=== PATIENT | male | born 1955 | race Caucasian/White ===

== ENCOUNTER → 2019-12-01 | Outpatient (CLI) | payer OTHER, MEDICARE ==
[~2019-12-01] MED LIST: AMBEREN; ASPIRIN BUFFER325 MG PO; ASPIRIN EC325 M1 PO; ASPIRIN EC81 M1 PO; ASPIRIN325; ASPRIMOX 325 M325 MG PO; BACTROBAN CREAM30 G1 NASAL; BENICAR20 MG PO; BYSTOLIC2.5 MG PO; CARVEDILOL6.25 MG PO; COREG PO; EFFIENT10 MG PO; FERREX-150 PLU150 MG PO; HYDROCODON-ACE1 EAC8 PO; LIPITOR40 MG PO; LORAZEPAM 0.50.5 MG PO; LORTAB 5 MG/5001 TAB PO; MEXILETINE 150150 MG PO; PACERONE 200 M200 M1 PO; PLAVIX 75 MG TA75 MG PO; TRIPLE ANTIBIO1 EACH TP
== END ==
LOC: SJCVCIMAG 07:21
PROVIDERS: ATTEND Internal Medicine Cardiovascular Disease
DX: I25.10 Atherosclerotic heart disease of native coronary artery without angina pectoris (principal); I10 Essential (primary) hypertension; E78.00 Pure hypercholesterolemia, unspecified; Z95.1 Presence of aortocoronary bypass graft; Z79.899 Other long term (current) drug therapy; Z87.891 Personal history of nicotine dependence

== ENCOUNTER → 2019-12-08 | Outpatient (CLI) | payer OTHER, MEDICARE ==
[~2019-12-08] VITALS: Ht 182.9 cm; Wt 75.7 kg
[~2019-12-08] MED LIST changes: +CARVEDILOL25 MG PO; -CARVEDILOL6.25 MG PO; +COZAAR 25 MG TA25 M2 PO
[2019-12-08 07:15] VITALS: BP 130/75
[2019-12-08 07:40] LABS: HEMATOCRIT 42.9 % (42.0-52.0); HEMOGLOBIN 14.2 gm/dL (14.0-18.0); MCHC 33.2 g/dL (28.0-37.0); MCV 96.4 fL (80.0-100.0); RBC 4.45 mil/uL (4.50-6.00); RDW 13.1 % (10.5-14.5); WBC 4.1 thou/uL (4.0-11.0)
[2019-12-08 07:45] LABS: CALCIUM 8.8 mg/dL (8.5-10.1); POTASSIUM 4.4 mmol/L (3.5-5.1)
--- NOTE | 2019-12-08 15:04 | CATHLAB ---
[facility] [place] [address] INVASIVE PROCEDURE REPORT Name: KEVIN STARK Room #: REG GEENA PrattKamlaRocíoKamla#: [id number] Admission: 12/08/19 Attend Phys: Rosalio Cummings MD Discharge: Date of : 53 Report #: [id number] THIS REPORT FOR: cc: Bryn Vasquez MD, Troy A. MD Park, Jin S. MD ~ APPROVED REPORT Study performed: 12/08/2019 07:55:30 Patient Details Patient Status: Out-Patient Room #: The patient is a 64 year-old male Event Personnel Rosalio Cummings Customer Success Associate, Mami Ceballos RN RN, Bety Gomez RN RN, Molly Galarza RTR, VINH Scrub, Shahram Solano RTR Scrub, Mindi Wilks RTR Monitor Procedures Performed Art Access - R femoral artery* Left Heart Cath Coronaries, Bypass Grafts [id number] [id number] Initial Mod Sed Same Phys/QHP Gr5y [id number] 72702 Mod Sed Same Phys/QHP Ea 850835 Hemostasis with Manual pressure Indication Arrhythmia, Positive stress test Risk Factors Hypercholesterolemia, Coronary Artery DiseaseHypertension Previous Procedures/Diagnoses Previous CABGPrevious PCI Procedure Narrative The Right Groin^ was infiltrated with 1% Lidocaine subcutaneous anesthesia. A PINNACLE 4FR Sheath #[id number] sheath was inserted into the RFA^. Coronary angiography was performed using coronary diagnostic catheters. The right coronary system was accessed and visualized with a JR4 catheter. The left coronary system was accessed and visualized with a JL4 catheter. The left ventricle was accessed and visualized with a PIGTAIL catheter. Left ventriculogram was performed in 30 degree projection. Hemostasis was obtained with manual pressure following sheath removal without any complications. [facility] [address] [place] [address] INVASIVE PROCEDURE REPORT Name: KEVIN STARK Room #: REG [facility]#: [id number] Admission: 12/08/19 Attend Phys: Rosalio Cummings MD Discharge: Date of : 53 Report #: [id number] The patient tolerated the procedure well and there were no complications associated with the procedure. There was no hematoma. Intraoperative Conscious Sedation Sedation start time: 830 Case end Time: 935 Fentanyl 50 mcg Versed 1 mg Fluoro Time: 11.60 minutes Dose: DAP 73029.00 cGycm2 2581 mGy Contrast Type and Amount: Omnipaque 195 ml Coronary Angiography The patient's coronary anatomy is right dominant. Diagnostic Cath Left Main The left main artery is a large-caliber vessel, patent with no flow-limiting lesions. LAD The LAD is a severe stenosis in the proximal and mid segments. There is a patent MORTON graft with a end-to-side anastomosis to the mid LAD. Diagonal 1 There is a borderline restenotic lesion, approximately 60% at the ostium. There is an occluded free radial graft to D1(probably due to competitive filling from the zuni vessel). Circumflex The left circumflex artery is a moderate-sized caliber vessel with a borderline stenosis in the proximal segment, 60%. OM1 There is a patent stent in the proximal segment of OM1 with mild restenosis. Right Coronary The RCA is a dominant vessel with a total occlusion in the midsegment. R PDA There is a patent SVG with an end-to-side anastomosis to the PDA. There is both retrograde and anterograde filling after the anastomosis. Left Ventriculography The left ventricle is dilated in size with decreased contractility. The left ventricular ejection fraction is estimated to be 35%. Hemodynamics The aortic pressure is 99/63 mmHg with a mean of 78 mmHg. The left ventricular pressure is 128/71 mmHg with a mean of mmHg. The left ventricular end diastolic pressure is [address] [facility] [address] [place] [address] INVASIVE PROCEDURE REPORT Name: KEVIN STARK JONAH Room #: REG CL Alix#: [id number] Admission: 12/08/19 Attend Phys: Rosalio Cummings MD Discharge: Date of : 53 Report #: [id number] Conclusion 1. There is a patent MORTON graft to the LAD. 2. There is a patent SVG to the PDA. 3. There are borderline lesions involving the first diagonal artery and proximal left circumflex. The free radial graft to D1/OM1 is occluded, probably from competitive filling through the zuni vessels. 4. There is moderately severe global LV dysfunction. 5. Recommend guideline directed medical therapy and EP consultation. <ELECTRONICALLY SIGNED> By: Rosalio Cummings MD 12/08/19 1504 1504 1504 Rosalio Cummings MD /INF
== END | disposition home or self-care (01) ==
LOC: CATH 06:28
PROVIDERS: ATTEND Internal Medicine Cardiovascular Disease
DX: I25.810 Atherosclerosis of coronary artery bypass graft(s) without angina pectoris (principal); R94.39 Abnormal result of other cardiovascular function study; I49.9 Cardiac arrhythmia, unspecified; I10 Essential (primary) hypertension; E78.00 Pure hypercholesterolemia, unspecified; Z95.1 Presence of aortocoronary bypass graft; Z98.890 Other specified postprocedural states; Z79.899 Other long term (current) drug therapy; Z79.82 Long term (current) use of aspirin

== ENCOUNTER → 2019-12-29 | Outpatient (CLI) | payer OTHER, MEDICARE | LOC: SJCVC 12:43 | PROVIDERS: ATTEND Internal Medicine Cardiovascular Disease | DX: R94.31 Abnormal electrocardiogram [ECG] [EKG] (principal); R00.1 Bradycardia, unspecified; I11.9 Hypertensive heart disease without heart failure; I25.10 Atherosclerotic heart disease of native coronary artery without angina pectoris; I25.5 Ischemic cardiomyopathy; E78.00 Pure hypercholesterolemia, unspecified ==

== ENCOUNTER → 2020-02-01 | Outpatient (CLI) | payer OTHER, MEDICARE | LOC: SJCVCIMAG 07:13 | PROVIDERS: ATTEND Internal Medicine Cardiovascular Disease | DX: R00.0 Tachycardia, unspecified (principal); I51.7 Cardiomegaly; I25.10 Atherosclerotic heart disease of native coronary artery without angina pectoris; I25.5 Ischemic cardiomyopathy; R00.1 Bradycardia, unspecified ==

== ENCOUNTER → 2020-02-02 | Outpatient (CLI) | payer OTHER, MEDICARE | LOC: SJCVC 09:14 | PROVIDERS: ATTEND Internal Medicine Cardiovascular Disease | DX: I25.10 Atherosclerotic heart disease of native coronary artery without angina pectoris (principal); I25.5 Ischemic cardiomyopathy; I10 Essential (primary) hypertension; E78.00 Pure hypercholesterolemia, unspecified; Z95.1 Presence of aortocoronary bypass graft; Z79.82 Long term (current) use of aspirin; Z79.899 Other long term (current) drug therapy; Z87.891 Personal history of nicotine dependence ==

== ENCOUNTER → 2020-08-04 | Outpatient (CLI) | payer OTHER, MEDICARE | LOC: SJCVC 08:41 | PROVIDERS: ATTEND Internal Medicine Cardiovascular Disease | DX: R53.83 Other fatigue (principal); R73.9 Hyperglycemia, unspecified; E78.00 Pure hypercholesterolemia, unspecified; I10 Essential (primary) hypertension; I25.10 Atherosclerotic heart disease of native coronary artery without angina pectoris; E78.5 Hyperlipidemia, unspecified; Z95.1 Presence of aortocoronary bypass graft; Z79.82 Long term (current) use of aspirin; Z79.899 Other long term (current) drug therapy ==

== ENCOUNTER → 2020-08-17 | Outpatient (CLI) | payer OTHER, MEDICARE | LOC: SJCVC 15:00 | PROVIDERS: ATTEND Internal Medicine Cardiovascular Disease | DX: R00.1 Bradycardia, unspecified (principal); I47.1 Supraventricular tachycardia; I25.10 Atherosclerotic heart disease of native coronary artery without angina pectoris; I25.5 Ischemic cardiomyopathy; I10 Essential (primary) hypertension; E78.5 Hyperlipidemia, unspecified; E78.00 Pure hypercholesterolemia, unspecified; Z95.1 Presence of aortocoronary bypass graft; Z79.82 Long term (current) use of aspirin; Z79.899 Other long term (current) drug therapy; Z87.891 Personal history of nicotine dependence; Z82.49 Family history of ischemic heart disease and other diseases of the circulatory system ==

== ENCOUNTER → 2021-01-27 | Outpatient (CLI) | payer OTHER, MEDICARE | LOC: SJCVC 11:09 | PROVIDERS: ATTEND Internal Medicine Cardiovascular Disease | DX: I25.5 Ischemic cardiomyopathy (principal); R73.09 Other abnormal glucose; E78.00 Pure hypercholesterolemia, unspecified; I25.10 Atherosclerotic heart disease of native coronary artery without angina pectoris; R97.20 Elevated prostate specific antigen [PSA]; Z79.82 Long term (current) use of aspirin; Z79.899 Other long term (current) drug therapy ==

== ENCOUNTER 2021-01-28 19:13 | Emergency (ER) | payer OTHER, MEDICARE ==
[~2021-01-28] VITALS: Ht 182.9 cm; Wt 74.4 kg
[2021-01-28 19:17] VITALS: BP 161/88
[2021-01-28 20:08] LABS: CALCIUM 8.5 mg/dL (8.5-10.1); CREATININE 1.2 mg/dL (0.7-1.3); POTASSIUM 3.8 mmol/L (3.5-5.1)
[2021-01-28 20:10] LABS: ALBUMIN 3.9 g/dL (3.4-5.0); TOTAL BILIRUBIN 0.3 mg/dL (0.2-1.0); TOTAL PROTEIN 7.1 g/dL (6.4-8.2)
--- NOTE | 2021-01-29 12:05 | EKG ---
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
== END 2021-01-28 20:05 | disposition home or self-care (01) ==
LOC: ER 19:13
PROVIDERS: Emergency Medicine
DX: R79.9 Abnormal finding of blood chemistry, unspecified (principal); Z71.1 Person with feared health complaint in whom no diagnosis is made; I10 Essential (primary) hypertension; I25.10 Atherosclerotic heart disease of native coronary artery without angina pectoris; F41.9 Anxiety disorder, unspecified; Z95.1 Presence of aortocoronary bypass graft; Z79.82 Long term (current) use of aspirin; Z79.899 Other long term (current) drug therapy

== ENCOUNTER → 2021-02-14 | Outpatient (CLI) | payer OTHER, MEDICARE | LOC: SJCVCIMAG 08:54 | PROVIDERS: ATTEND Internal Medicine Cardiovascular Disease | DX: I08.3 Combined rheumatic disorders of mitral, aortic and tricuspid valves (principal); I25.5 Ischemic cardiomyopathy; Z01.810 Encounter for preprocedural cardiovascular examination; I25.10 Atherosclerotic heart disease of native coronary artery without angina pectoris; E78.00 Pure hypercholesterolemia, unspecified; I49.3 Ventricular premature depolarization; I10 Essential (primary) hypertension; E78.5 Hyperlipidemia, unspecified; D69.6 Thrombocytopenia, unspecified; F17.200 Nicotine dependence, unspecified, uncomplicated; Z72.89 Other problems related to lifestyle; Z79.82 Long term (current) use of aspirin; Z79.899 Other long term (current) drug therapy; Z88.8 Allergy status to other drugs, medicaments and biological substances ==